=== PATIENT | female | born 1960 | race Caucasian/White ===

== ENCOUNTER → 2017-11-29 | Outpatient (CLI) | payer BC ==
--- NOTE | 2017-11-29 10:51 | MM ---
Reason for exam: additional evaluation requested from prior study. Last mammogram was performed 1 year and 3 months ago. History: Patient is postmenopausal. Family history of breast cancer in maternal aunt at age 30. Physical Findings: Nurse did not find any significant physical abnormalities on exam. MG 3D Diag Mammo W/Cad LENNY Bilateral CC and MLO view(s) were taken. Prior study comparison: September 10, 2016, mammogram. September 03, 2016, mammogram. July 10, 2015, mammogram. There are scattered fibroglandular densities. No suspicious abnormality. No significant new findings when compared with previous films. These results were verbally communicated with the patient and result sheet given to the patient on 11/29/17. ASSESSMENT: Negative, BI-RAD 1 RECOMMENDATION: Routine screening mammogram of both breasts in 1 year.
== END | disposition home or self-care (01) ==
LOC: RADMAMWWP 10:10
PROVIDERS: ATTEND Obstetrics & Gynecology
DX: R92.8 Other abnormal and inconclusive findings on diagnostic imaging of breast (principal)
CPT/HCPCS: 77066; G0279

== ENCOUNTER → 2019-03-05 | Outpatient (CLI) | payer BC ==
--- NOTE | 2019-03-06 09:00 | MM ---
Reason for exam: screening (asymptomatic). Last mammogram was performed 1 year and 3 months ago. History: Patient is postmenopausal. Family history of breast cancer in maternal aunt at age 30. Physical Findings: A clinical breast exam by your physician is recommended on an annual basis and results should be correlated with mammographic findings. MG 3D Screening Mammo W/Cad Bilateral CC and MLO view(s) were taken. Prior study comparison: November 29, 2017, bilateral MG 3d diag mammo w/cad [facility]. September 10, 2016, mammogram. There are scattered fibroglandular densities. There is no discrete abnormality. No significant changes when compared with prior studies. ASSESSMENT: Negative, BI-RAD 1 RECOMMENDATION: Routine screening mammogram of both breasts in 1 year.
== END | disposition home or self-care (01) ==
LOC: RADMAMWWP 15:57
PROVIDERS: ATTEND Obstetrics & Gynecology
DX: Z12.31 Encounter for screening mammogram for malignant neoplasm of breast (principal)
CPT/HCPCS: 77063; 77067

== ENCOUNTER → 2020-09-04 | Outpatient (CLI) | payer BC ==
--- NOTE | 2020-09-04 09:10 | MM ---
Reason for exam: screening (asymptomatic). Last mammogram was performed 1 year and 6 months ago. History: Patient is postmenopausal. Family history of breast cancer in maternal aunt at age 30. Physical Findings: A clinical breast exam by your physician is recommended on an annual basis and results should be correlated with mammographic findings. MG 3D Screening Mammo W/Cad Bilateral CC and MLO view(s) were taken. XCCL view(s) were taken of the right breast. Prior study comparison: March 05, 2019, bilateral MG 3d screening mammo w/cad. November 29, 2017, bilateral MG 3d diag mammo w/cad [facility]. There are scattered fibroglandular densities. There are benign appearing round calcifications bilaterally. There is no discrete abnormality. ASSESSMENT: Benign, BI-RAD 2 RECOMMENDATION: Routine screening mammogram of both breasts in 1 year.
== END | disposition home or self-care (01) ==
LOC: RADMAMWWP 07:31
PROVIDERS: ATTEND Family Medicine
DX: Z12.31 Encounter for screening mammogram for malignant neoplasm of breast (principal)
CPT/HCPCS: 77063; 77067

== ENCOUNTER → 2022-06-04 | Outpatient (CLI) | payer BC ==
--- NOTE | 2022-06-04 12:10 | MM ---
Reason for Exam: Screening (asymptomatic). Last mammogram was performed 1 year(s) and 9 month(s) ago. Patient History: Menarche at age 13. First Full-Term at age 19. Hysterectomy at age 41. Postmenopausal. Maternal aunt had breast cancer, age 30. Risk Values: Yara 5 year model risk: 1.2%. NCI Lifetime model risk: 5.7%. Prior Study Comparison: 11/29/2017 Bilateral Diagnostic Mammogram, [facility]. 03/05/2019 Bilateral Screening Mammogram, [facility]. 09/04/2020 Bilateral Screening Mammogram, [facility]. Tissue Density: There are scattered fibroglandular densities. Findings: Analyzed By CAD. There are a few scattered benign-appearing round calcifications throughout the bilateral breasts. There is a new 8 mm oval mass in the middle depth outer aspect left breast 10 cm distance from nipple that warrants further workup. Overall Assessment: Incomplete: need additional imaging evaluation, BI-RAD 0 Management: Diagnostic Mammogram of the left breast. Return for additional 3-D true lateral view left breast to help localize for targeted ultrasound. Electronically signed and approved by: Francisco Turner M.D.
== END | disposition home or self-care (01) ==
LOC: RADMAMWWP 07:19
PROVIDERS: ATTEND Family Medicine
DX: Z12.31 Encounter for screening mammogram for malignant neoplasm of breast (principal); Z78.0 Asymptomatic menopausal state; Z80.3 Family history of malignant neoplasm of breast
CPT/HCPCS: 77063; 77067

== ENCOUNTER → 2022-06-14 | Outpatient (CLI) | payer BC ==
--- NOTE | 2022-06-14 11:02 | MM ---
Reason for Exam: Additional evaluation requested from abnormal screening. Last screening mammogram was performed less than 1 month ago. Patient History: Menarche at age 13. First Full-Term at age 19. Hysterectomy at age 41. Postmenopausal. Maternal aunt had breast cancer, age 30. Risk Values: Yara 5 year model risk: 1.2%. NCI Lifetime model risk: 5.7%. Prior Study Comparison: 03/05/2019 Bilateral Screening Mammogram, [facility]. 09/04/2020 Bilateral Screening Mammogram, [facility]. 06/04/2022 Bilateral MG 3D screening mammo w/cad, [facility]. Tissue Density: Left: There are scattered fibroglandular densities. Findings: Analyzed By CAD. Mammogram Nodular density left 3:00 persists.. Technique: Method: Targeted. Findings: Left breast 3:00 10CFN = 0.6 x 0.4 x 0.8cm. Overall Assessment: Probably benign, BI-RAD 3 Assessment: MG 3D work up w/cad LT - Left: Incomplete: need additional imaging evaluation, BI-RAD 0. US breast workup limited LT - Left: Probably benign, BI-RAD 3. Management: Diagnostic Mammogram of the left breast in 6 months. A clinical breast exam by your physician is recommended on an annual basis and results should be correlated with mammographic findings. Results were given to the patient verbally at the time of exam. Electronically signed and approved by: Levy Guzman M.D. Radiologis
== END | disposition home or self-care (01) ==
LOC: RADMAMWWP 10:02
PROVIDERS: ATTEND Family Medicine
DX: R92.8 Other abnormal and inconclusive findings on diagnostic imaging of breast (principal)
CPT/HCPCS: 77061; 77065

== ENCOUNTER → 2022-12-23 | Outpatient (CLI) | payer BC ==
--- NOTE | 2022-12-23 13:30 | MM ---
Reason for Exam: Clinical finding. Last screening mammogram was performed 6 month(s) ago. Patient History: Menarche at age 13. First Full-Term at age 19. Hysterectomy at age 41. Postmenopausal. Maternal aunt had breast cancer, age 30. Risk Values: Yara 5 year model risk: 1.3%. NCI Lifetime model risk: 5.5%. Prior Study Comparison: 09/04/2020 Bilateral Screening Mammogram, [facility]. 06/04/2022 Bilateral MG 3D screening mammo w/cad, [facility]. 06/14/2022 Left MG 3D work up w/cad , [facility]. Tissue Density: Left: There are scattered fibroglandular densities. Findings: Analyzed By CAD. Redemonstrated 8 mm mildly lobulated isodense to low density mass at the 4:00 position left breast middle depth. The finding remains unchanged for 6 months. Reassessment by ultrasound. Overall Assessment: Incomplete: need additional imaging evaluation, BI-RAD 0 Management: Diagnostic Breast Ultrasound of the left breast. Electronically signed and approved by: Najma Aguillon M.D. Radiologist
--- NOTE | 2022-12-23 16:10 | USB ---
Reason for Exam: Follow-up at short interval from prior study. Patient History: Menarche at age 13. First Full-Term at age 19. Hysterectomy at age 41. Postmenopausal. Maternal aunt had breast cancer, age 30. Risk Values: Yara 5 year model risk: 1.3%. NCI Lifetime model risk: 5.5%. Technique: Method: Targeted. Prior Study Comparison: 09/04/2020 Bilateral Screening Mammogram, [facility]. 06/04/2022 Bilateral MG 3D screening mammo w/cad, [facility]. 06/14/2022 Left US breast workup limited LT, [facility]. 06/14/2022 Left MG 3D work up w/cad LT, [facility]. Findings: The axilla of the left breast and the retroareolar of the left breast were scanned. Targeted ultrasound left breast 3:00 as well as the subareolar region and axilla. At the 3:00 position, 8 cm from the nipple, there is an 8 x 5 x 4 mm nonspecific hypoechoic circumscribed mass corresponding to the mammographic finding. Some small internal cystic components are present. Possible cyst cluster. Previously measured 8 x 6 x 4 mm. Ongoing follow-up to demonstrate long-term stability. Overall Assessment: Probably benign, BI-RAD 3 Management: Diagnostic Mammogram of both breasts in 6 months. Total one-year follow-up probable cyst cluster 3:00 left breast and annual exam of the right breast. Patient should continue monthly self breast exams. These results should not preclude additional follow-up of suspicious palpable abnormalities. Results were given to the patient verbally at the time of exam. Electronically signed and approved by: Najma Aguillon M.D. Radiologist
== END | disposition home or self-care (01) ==
LOC: RADMAMWWP 12:56
PROVIDERS: ATTEND Family Medicine
DX: R92.8 Other abnormal and inconclusive findings on diagnostic imaging of breast (principal); Z78.0 Asymptomatic menopausal state; Z80.3 Family history of malignant neoplasm of breast
CPT/HCPCS: 77061; 77065

== ENCOUNTER → 2023-12-29 | Outpatient (CLI) | payer BC ==
--- NOTE | 2023-12-29 13:08 | MM ---
Reason for Exam: Follow-up at short interval from prior study. Last screening mammogram was performed 7 month(s) ago. Patient History: Menarche at age 13. First Full-Term at age 19. Hysterectomy at age 41. Postmenopausal. Maternal aunt had breast cancer, age 30. Risk Values: Yara 5 year model risk: 1.3%. NCI Lifetime model risk: 5.3%. Prior Study Comparison: 06/14/2022 Left MG 3D work up w/cad LT, [facility]. 12/23/2022 Left MG 3D diag mammo w/cad LT, [facility]. 06/21/2023 Bilateral MG 3D diag mammo w/cad LEN[facility], [facility]. Tissue Density: Left: There are scattered fibroglandular densities. Findings: Analyzed By CAD. The 3-4 o'clock, 8 mm area of isodense nodularity remains unchanged for 1.5 years compared to 06/04/2022. Ongoing short interval follow-up is recommended. A few benign calcifications. Overall Assessment: Probably benign, BI-RAD 3 Management: Diagnostic Mammogram of both breasts in 6 months. (Total 2 year follow-up left breast and annual exam of the right breast). Results were given to the patient verbally at the time of exam. Patient should continue monthly self-breast exams. A clinical breast exam by your physician is recommended on an annual basis. This exam should not preclude additional follow-up of suspicious palpable abnormalities. Note on Yara scores and lifetime risk: 1. A Yara score greater than 3% is considered moderate risk. If this is the case, consider specialist referral to assess eligibility for a risk reducing agent. 2. If overall lifetime risk for the development of breast cancer is 20% or higher, the patient may qualify for future screening with alternating mammogram and breast MRI. Electronically signed and approved by: Najma Aguillon M.D. Radiologist
== END | disposition home or self-care (01) ==
LOC: RADMAMWWP 12:46
PROVIDERS: ATTEND Family Medicine
DX: R92.322 Mammographic fibroglandular density, left breast (principal); Z80.3 Family history of malignant neoplasm of breast; Z78.0 Asymptomatic menopausal state
CPT/HCPCS: 77061; 77065

== ENCOUNTER → 2024-09-05 | Outpatient (CLI) | payer BC, MEDICARE ==
--- NOTE | 2024-09-05 13:29 | MM ---
Reason for Exam: Additional evaluation requested from prior study. Last mammogram was performed 1 year(s) and 3 month(s) ago. Patient History: Menarche at age 13. First Full-Term at age 19. Hysterectomy at age 41. Postmenopausal. Maternal aunt had breast cancer, age 30. Risk Values: Yara 5 year model risk: 1.4%. NCI Lifetime model risk: 5.1%. Prior Study Comparison: 11/29/2017 Bilateral Diagnostic Mammogram, [facility]. 03/05/2019 Bilateral Screening Mammogram, [facility]. 09/04/2020 Bilateral Screening Mammogram, [facility]. 06/04/2022 Bilateral MG 3D screening mammo w/cad, [facility]. 06/14/2022 Left MG 3D work up w/cad LT, [facility]. 12/23/2022 Left MG 3D diag mammo w/cad LT, [facility]. 06/21/2023 Bilateral MG 3D diag mammo w/cad LENNY, [facility]. 12/29/2023 Left MG 3D diag mammo w/cad LT, [facility]. Tissue Density: There are scattered areas of fibroglandular density. Findings: Analyzed By CAD. Stable nodular density upper outer left breast dating back to 2021. No new nodules seen. No suspicious microcalcifications. Overall Assessment: Benign, BI-RAD 2 Management: Screening Mammogram of both breasts in 1 year. . Results were given to the patient verbally at the time of exam. Patient should continue monthly self-breast exams. A clinical breast exam by your physician is recommended on an annual basis. This exam should not preclude additional follow-up of suspicious palpable abnormalities. Note on Yara scores and lifetime risk: 1. A Yara score greater than 3% is considered moderate risk. If this is the case, consider specialist referral to assess eligibility for a risk reducing agent. 2. If overall lifetime risk for the development of breast cancer is 20% or higher, the patient may qualify for future screening with alternating mammogram and breast MRI. [facility], , 09/05/2024 1:26 PM. Electronically signed and approved by: Levy Guzman M.D. Radiologis
== END | disposition home or self-care (01) ==
LOC: RADMAMWWP 10:57
PROVIDERS: ATTEND Family Medicine
DX: R92.8 Other abnormal and inconclusive findings on diagnostic imaging of breast
CPT/HCPCS: 77062; 77066